=== PATIENT | male | born 2005 | race Caucasian/White ===

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

== ENCOUNTER 2023-01-24 18:57 | Emergency (ER) | payer MEDICAID, SELFPAY ==
[2023-01-24 18:59] VITALS: BP 132/75; PULSE 66; RESP 16; TEMP 36.8; O2SAT 97; BMI 35.5
[2023-01-24 19:31] VITALS: BP 113/66; PULSE 85; O2SAT 93
[2023-01-24 20:04] VITALS: BP 114/66; PULSE 83; O2SAT 97
--- NOTE | 2023-01-24 20:06 | HMH.EDGENADL ---
Discharge Plan Disposition Patient Disposition: Home, Self-Care Condition: Good Prescriptions Prescriptions: New amoxicillin 500 mg tablet 1,000 mg PO Q12H Qty: 14 0RF Discontinued amoxicillin [amoxicillin] 875 mg tablet 875 mg PO Q12H Qty: 20 0RF No Action etodolac 200 mg capsule 200 mg PO Q8H PRN (Reason: pain) Qty: 20 0RF methylprednisolone [Medrol (Louie)] 4 mg tablets,dose pack See Rx Instructions .Route .COMPLEX 6 Days Qty: 21 0RF Rx Instructions: taper pack; cyclobenzaprine 10 mg tablet 10 mg PO TID PRN (Reason: muscle spasm) Qty: 15 0RF ylvjgiblftktsue-esonngddh-QK [Bromfed DM] 2-30-10 mg/5 mL Syrup 5 ml PO Q6H PRN (Reason: Cough) Qty: 240 0RF Referrals Follow up/Referrals: Fred Riley MD [Primary Care Provider] - See instructions Activity Restrictions/Add. Instructions Additional Instructions/Restrictions: At this time. You are safe to be discharged home. If new or worsening symptoms please do not hesitate to return the emergency department. Clinical Impressions Clinical Impression: Otitis media Discharge ED Provider: Shade Bolton General Adult HPI General Chief complaint: Ear Stated complaint: GREENE, light headed, RT ear pain Time Seen by Provider: 01/24/23 19:37 Mode of Arrival: Ambulatory Source of Information: Patient Limitations: No Limitations Description of Symptoms (Recalled from ER Triage Doc. by RN): pt ambulatory to ED via POV for right ear pain and vertigo. Issue present for past week. progressing to left ear, with increased lightheadedness. History of Present Illness HPI narrative: Patient is a 88-year-old male with past medical history of recurrent ear infections who presents emergency department for evaluation of dizziness and ear pain. Onset was acute, over the last few days. Afebrile, no other acute complaints at this time. Patient denies falls, recent viral illness. He does state that there is a gastrointestinal illness in the house which he does not have any current symptoms, patient also has seasonal allergies. Related Data Previous Rx's Medication Instructions Recorded cyclobenzaprine 10 mg tablet 10 mg PO TID PRN muscle spasm #15 09/06/22 tabs etodolac 200 mg capsule 200 mg PO Q8H PRN pain #20 caps 09/06/22 methylprednisolone 4 mg tablets in See Rx Instructions .Route 09/06/22 a dose pack (Medrol (Louie)) .COMPLEX 6 days #21 tabs qcwnwzeevtfynji-tjcuhzxzvchukxm-CI 5 ml PO Q6H PRN Cough #240 mL 10/25/22 2 mg-30 mg-10 mg/5 mL oral syrup (Bromfed DM) amoxicillin 500 mg tablet 1,000 mg PO Q12H #14 tabs 01/24/23 Allergies Allergy/AdvReac Type Severity Reaction Status Date / Time No Known Allergies Allergy Verified [facility]/25[facility]22 10:58 [facility] Dis[facility]: The information contained in this section may have been updated after the patient was seen, as this information can be updated by other users. 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 No significant past medical history Social History Smoking Status: Current every day smoker second hand exposure: No alcohol intake: never substance use type: denies use current occupational status: employed Travel in the last 8 weeks: None caffeine: Yes ROS Obtained: Yes Systems reviewed as appropriate & no additional complaints except as documented Physical Exam General General appearance: alert and in no apparent distress Head Head exam: atraumatic and normocephalic Eye Eye exam: Present PERRL and EOMI ENT ENT exam: Present mucous membranes moist and other (Bulging right tympanic membrane with surrounding erythema. No anterior effacement of the pinna, no external auditory canal purulence.) Neck Neck exam: Present normal inspection Chest Chest inspection: Present normal inspection and symmetric chest wall rise Respiratory Respiratory exam: Present normal lung sounds bilaterally; Ab
[2023-01-24 20:18] VITALS: BP 124/75; PULSE 64; RESP 16; TEMP 36.8; O2SAT 98
== END 2023-01-24 20:27 | disposition home or self-care (01) ==
PROVIDERS: Emergency Provider Emergency Medicine; PCP Internal Medicine Adolescent Medicine
DX: H66.91 Otitis media, unspecified, right ear (principal); R42 Dizziness and giddiness; F17.200 Nicotine dependence, unspecified, uncomplicated
CPT/HCPCS: 99283

== ENCOUNTER 2023-05-07 00:38 | Emergency (ER) | payer MEDICAID, SELFPAY ==
[2023-05-07 00:40] VITALS: BP 128/66; PULSE 68; RESP 14; TEMP 36.4; O2SAT 99; BMI 36.5
--- NOTE | 2023-05-07 00:41 | HMH.EDGENADL ---
Discharge Plan Disposition Patient Disposition: Home, Self-Care Chief Complaint: Extremity Injury, Upper Prescriptions Prescriptions: No Action No Known Home Medications Referrals Follow up/Referrals: Fred Riley MD [Primary Care Provider] - See instructions Activity Restrictions/Add. Instructions Additional Instructions/Restrictions: Please follow-up with your primary care provider. Please return to the emergency department if you develop any new or worsening symptoms or become concerned for your health. Clinical Impressions Clinical Impression: Hand pain, right Discharge ED Provider: Héctor Gonzales General Adult HPI General Chief complaint: Extremity Injury, Upper Stated complaint: AO 05/03/23 11:00 Injury right hand Time Seen by Provider: 05/07/23 00:40 History of Present Illness HPI narrative: 18-year-old male, reportedly previously healthy, presents with right hand pain. He reports my anger got the best to me a few days ago and he punched a concrete wall with his right hand in a fist. He reports that he has had pain over his fifth metacarpal since that time. Reports no numbness or tingling. He reports symptoms have not improved and so he presents now for further evaluation. Related Data Home Medications Medication Instructions Recorded Confirmed No Known Home Medications 05/07/23 05/07/23 Allergies Allergy/AdvReac Type Severity Reaction Status Date / Time No Known Allergies Allergy Verified 10/25/22 10:58 [facility] Disclaimer: The information contained in this section may have been updated after the patient was seen, as this information can be updated by other users. 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 No significant past medical history Social History Smoking Status: Current every day smoker second hand exposure: No alcohol intake: never substance use type: denies use current occupational status: employed Travel in the last 8 weeks: None caffeine: Yes ROS Obtained: Yes All systems reviewed & no additional complaints except as documented Physical Exam General General appearance: alert and in no apparent distress Head Head exam: atraumatic and normocephalic Eye Eye exam: Present normal appearance, PERRL and EOMI ENT ENT exam: Present normal oropharynx and normal external ear exam Neck Neck exam: Present normal inspection and full ROM Chest Chest inspection: Present normal inspection and symmetric chest wall rise; Absent tenderness Respiratory Respiratory exam: Present normal lung sounds bilaterally; Absent respiratory distress Cardiovascular Cardiovascular exam: Present regular rate and normal rhythm Abdominal Exam Abdominal exam: Present soft; Absent distention, tenderness or guarding Extremities Exam Extremities exam: Present other (Tenderness to palpation of the right fifth metacarpal and MCP joint. No malrotation, no numbness or tingling, full range of motion present, no obvious deformity. mild bruising noted) Back Exam Back exam: Present normal inspection; Absent tenderness Neurological Exam Neurological exam: Present alert and oriented X3; Absent motor sensory deficit Psychiatric Psychiatric exam: Present normal affect and normal mood Skin Skin exam: Present warm, dry and normal color Lymphatic Lymphatic Findings: no adenopathy Medical Decision Making Medical Records Medical records reviewed: Yes I reviewed the patient's medical records. Teddy Inquiry Pt receiving controlled substance: No Teddy was queried for this patient: No Vital Signs: 05/07/23 00:40 Temperature 97.6 F Temperature Source Oral Pulse Rate [Right] 68 Respiratory Rate 14 Blood Pressure [Right Arm] 128/66 Blood Pressure Mean [Right Arm] 86 02 Sat by Pulse Oximetry 99 Lab Data Lab results reviewed: Yes I reviewed the patient's lab results. Orders (Tests/Meds):
--- NOTE | 2023-05-07 00:48 | XR_ITS ---
PROCEDURE INFORMATION: Exam: XR Right Hand Exam date and time: 05/07/2023 12:46 AM Age: 18 years old Clinical indication: Injury or trauma; Other: Punching; Blunt trauma (contusions or hematomas); Hand; Right; Patient HX: Punched concrete wall on Saturday, C/O pain around 5th metacarpal; Additional info: 5th metacarpal pain, punching injury TECHNIQUE: Imaging protocol: Radiologic exam of the right hand. Views: 3 or more views. Total images: 3 COMPARISON: No relevant prior studies available. FINDINGS: Bones/joints: No acute fracture or joint dislocation. No concerning bone lesions or calcifications. Joint spaces are well maintained. Soft tissues: Unremarkable soft tissues. IMPRESSION: Negative right hand.
[2023-05-07 01:21] VITALS: BP 121/71; PULSE 61; RESP 14; TEMP 36.4; O2SAT 99
== END 2023-05-07 01:22 | disposition home or self-care (01) ==
PROVIDERS: Emergency Provider Emergency Medicine; PCP Internal Medicine Adolescent Medicine
DX: M79.641 Pain in right hand (principal); F17.210 Nicotine dependence, cigarettes, uncomplicated; W22.8XXA Striking against or struck by other objects, initial encounter
CPT/HCPCS: 73130; 99283

== ENCOUNTER 2023-07-29 18:24 | Emergency (ER) | payer BC, MEDICAID, SELFPAY ==
[2023-07-29 18:26] VITALS: BP 115/75; PULSE 73; RESP 15; TEMP 36.8; O2SAT 100; BMI 36.1
--- OUTSIDE RECORDS SUMMARY | 2023-07-29 18:35 | XMS_ITS | Patient Health Record ---
Author Name Unknown Organization [id number] PE D KR[facility] Address [address] [place] [address] Care Team Providers Care Care Team Assistant Name Role Phone Fred Riley Primary Care Provider Fred Riley Unavailable Unavailable ALLERGIES No Known Allergies REASON FOR REFERRAL Reason [facility] PT to evaluate for left-sided low back pain and sciatica SaturdayNovember 26 @ 8 am with PT/ LVM Diagnosis 1 Acute left-sided low back pain with left-sided sciatica (M54.42) Referral Organization [facility] Referring Provider First Name Fred Referring Provider Last Name Rosemary Referring Provider Speciality Internal M edicine General Notes Telma Newman 02/2023 10:09:55 AM > 2nd VM left today with date and time and asked for a call back Referral Priority Routine MEDICATIONS Medication SIG (Take, Route, Fr equency, Duration) Notes Start Date End Date Status predniSONE 20 mg 1 tab(s) orally once a day for 7 days 11/21/2022 Active celecoxib 200 mg 1 cap(s) orally twic e daily for 30 days 11/21/2022 Active SOCIAL HISTORY Tobacco Use: Social History Observation Description Date Details (start date - stop date) Current Smoker NA - NA Sex Assigned At : Social History Observation Description Sex Assigned At Unknown Smoking: Question Answer Notes Are you a: current smoker How often do you smoke cigarettes? every day PROBLEMS Problem Type ICD Code Onset Dates Problem Status W/U Status Risk SNOMED Code Notes Problem Pain in left knee (M25.562) Active confirmed 4586777445 Problem Acute left-sided low back pain with left-sided sciatica (M54.42) Active confirmed 067077183 VITAL SIGNS Heart Rate 86 /min 11/21/2022 Temperature 98.1 degrees Fahrenheit 11/21/2022 Blood pressure diastolic 76 mm Hg 11/21/2022 Height 74 in 11/21/2022 Blood pressure systolic 114 mm Hg 11/21/2022 Weight 330 lbs 11/21/2022 BMI 42.36 kg/m2 11/21/2022 Encounters Encounter Location Date Provider Diagnosis [facility] S[facility] [address] [facility] [address] [place] [address] 10/29/2022 Fred Moser [facility] [address] [facility] [address] [place] [address] 11/21/2022 Fred Riley Acute left-sided low back pain with left-sided sciatica M54.42 ; Pain in left knee M25.562 and Routine medical exam Z00.00 Oxana MUÑOZ [facility] [address] [facility] [address] [place] [address] 11/23/2022 Fred Riley Acute left-sided low back pain with left-sided sciatica M54.42 ASSESSMENTS Encounter Date Diagnosis Assessment Notes Treatment Notes Treatment Clinical Notes 11/21/2022 Pain in left knee (ICD-10 - M25.562) Trial of Coronado 2 inhibitor and more potent NSAID chronically as well as prednisone for the above sciatica. Discussed beneficial effects of weight loss for his knee and back. [facility] PT evaluation for back. If PT does not improve the situation may need MRI given the striking nature of his pain. 11/21/2022 Acute left-sided low back pain with left-sided sciatica (ICD-10 - M54.42) 11/23/2022 Acute left-sided low back pain with left-sided sciatica (ICD-10 - M54.42) 11/21/2022 Routine medical exam (ICD-10 - Z00.00) Patient vapes, he is trying to quit, we discussed this. Otherwise no indication for early cancer screening. Blood pressure under good control. Has had tetanus vaccine here at school, so does not need vaccination at this point. PLAN OF TREATMENT Pending Test Test Name Order Date Physical Therapy Eval and Treat 11/24/19 23 Insurance Providers Payer Name Payer Address Payer Phone Subscriber Number Group Number Insured Name Patient Relationship to Insured Coverage Start Date Coverage End Date [employer] [place] [employer] [address] [address] [place] [address] [id number] Yoshi Doty Self - patient is the insured
[2023-07-29 18:39] LABS: Coronavirus 19, PCR Not Detected (NotDetected); Influenza A, PCR Not Detected (NotDetected); Influenza B, PCR Not Detected (NotDetected)
--- NOTE | 2023-07-29 18:48 | ED_ITS ---
Discharge Plan Disposition Patient Disposition: Home, Self-Care Prescriptions Prescriptions: New ondansetron 4 mg tablet,disintegrating 4 mg PO Q8H PRN (Reason: nausea and vomiting) 4 Days Qty: 12 0RF Referrals Follow up/Referrals: Kayla Reddy APRN [Nurse Practitioner] - See instructions Fred Riley MD [Primary Care Provider] - See instructions Activity Restrictions/Add. Instructions Additional Instructions/Restrictions: At this time it was felt you are safe to be discharged home. If new or worsening symptoms please do not hesitate to return the emergency department. If symptoms persist please follow-up with your family doctor as you are able. Please call and schedule an appointment with ENT as you are able. Clinical Impressions Clinical Impression: Hypertrophy, papillae, tongue, Acute viral syndrome Instructions Patient Instructions: DI for Diarrhea and Traveler's Diarrhea -- Adult, DI for Diarrhea and Traveler's Diarrhea -- Child, DI for Nausea -- Adult, DI for Nausea -- Child Discharge ED Provider: Shade [facility] Adult HPI General Chief complaint: Nausea/Vomiting/Diarrhea Stated complaint: nausea, spot on tongue Time Seen by Provider: 07/29/23 18:30 Mode of Arrival: Ambulatory Source of Information: Patient Limitations: No Limitations Description of Symptoms (Recalled from ER Triage Doc. by RN): pt reports to ED with c/o white spot on tongue ongoing for few weeks. pt reports he was exposed to flu at work last week. pt began to have nausea, vomitting ongoing for 2 days History of Present Illness HPI narrative: Patient is a 18-year-old male with no pertinent past medical history presents emergency department for evaluation of white spots on his tongue as well as some vomiting, diarrhea in setting of flu exposure. Spot on his tongue is on the tip of his tongue, white-colored, circular, has been around for a couple of weeks. No tobacco product use. With regards to vomiting diarrhea is nonbloody, over the last 2 days after flu exposure. No other acute complaints at this time. Related Data Previous Rx's Medication Instructions Recorded ondansetron 4 mg disintegrating 4 mg PO Q8H PRN nausea and 07/29/23 tablet vomiting 4 days #12 tabs Allergies Allergy/AdvReac Type Severity Reaction Status Date / Time No Known Allergies Allergy Verified 10/25/22 10:58 [facility] Disclaimer: The information contained in this section may have been updated after the patient was seen, as this information can be updated by other users. 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 No significant past medical history Social History Smoking Status: Never smoker second hand exposure: No alcohol intake: never substance use type: denies use current occupational status: employed Travel in the last 8 weeks: None caffeine: Yes ROS Obtained: Yes Systems reviewed as appropriate & no additional complaints except as documented Physical Exam General General appearance: alert and in no apparent distress Head Head exam: atraumatic and normocephalic Eye Eye exam: Present PERRL and EOMI ENT ENT exam: Present mucous membranes moist and other (2 mm circular lesion over anterior tongue that is white, raised.) Neck Neck exam: Present normal inspection Chest Chest inspection: Present normal inspection and symmetric chest wall rise Respiratory Respiratory exam: Present normal lung sounds bilaterally; Absent respiratory distress Cardiovascular Cardiovascular exam: Present regular rate and normal rhythm Abdominal Exam Abdominal exam: Present soft; Absent tenderness Extremities Exam Extremities exam: Present normal inspection Neurological Exam Neurological exam: Present alert Psychiatric Psychiatric exam: Present normal affect Skin Skin exam: Present warm and dry Medical Decision Making Teddy Inquiry Pt receiving controlled substance: No Vital Signs: 07/29/23 18:26 Temperature 98.3 F Temperature Source Oral Pulse Rate [Left Radial] 73 Respiratory Rate 15 Blood Pressure [Right Arm] 115/75 Blood Pressure Mean [Right Arm] 88 02 Sat by Pulse Oximetry 100 Oxygen Delivery Method Room Air Orders (Tests/Meds): ED MEDICATIONS Generic Name Dose Route Start Last Admin Trade Name Fahad PRN Reason Stop Dose Admin Ondansetron HCl 4 mg 07/29/23 18:47 Ondansetron 4mg Odt SL 07/29/23 18:48 ONCE ONE ORDERS Category Date Time Status Rapid PCR Covid and Flu A/B Stat Lab 07/29/23 18:34 Received Medical Decision Narrative: In summary patient is a 18 old male past medical history described above presents emergency department for evaluation of tongue lesion and viral symptoms in the setting of flu exposure. Patient is hemodynamically stable nontoxic- appearing upon arrival, afebrile. With regards to tongue lesion, consistent with hypertrophic papula. No tobacco use to suggest malignancy that is developing. With regards to vomiting and diarrhea that is nonbloody in the setting of flu exposure differential includes a viral syndrome, influenza, among others. Workup will be limited to viral swab, labs and imaging were considered but given otherwise well-appearing will be deferred. Patient underwent p.o. challenge and was successful. Given the location of the hypertrophic papula that is bothersome to him he will be referred to ENT for continued evaluation. Critical Care Critical Care Time Critical Care Time: No
[2023-07-29] MEDS: ONDANSETRON 4MG ODT 4 MG SL (18:50)
[2023-07-29 18:55] VITALS: BP 115/75; PULSE 83; RESP 16; TEMP 36.8; O2SAT 99
== END 2023-07-29 18:57 | disposition home or self-care (01) ==
PROVIDERS: Emergency Provider Emergency Medicine; PCP Internal Medicine Adolescent Medicine
DX: K14.3 Hypertrophy of tongue papillae (principal); R11.2 Nausea with vomiting, unspecified; R19.7 Diarrhea, unspecified; Z20.828 Contact with and (suspected) exposure to other viral communicable diseases
CPT/HCPCS: 87636; 99283

== ENCOUNTER 2023-08-30 09:17 | Emergency (ER) | payer BC, MEDICAID, SELFPAY ==
[2023-08-30 09:35] VITALS: BP 126/79; PULSE 75; RESP 21; TEMP 36.9; O2SAT 100; BMI 37.2
--- NOTE | 2023-08-30 09:43 | ED_ITS ---
Discharge Plan Disposition Patient Disposition: Home, Self-Care Condition: Good Referrals Follow up/Referrals: Fred Riley MD [Primary Care Provider] - See instructions Kayla Reddy APRN [Nurse Practitioner] - See instructions (Call office for appointment) Tucker Awad [Referring] - See instructions (Call office for appointment) Activity Restrictions/Add. Instructions Additional Instructions/Restrictions: Use Saline nasal spray to help keep nose hydrated if you are having dryness that could be causing your Nose Bleeds Use a humidifer it may help with moisture in the air and help with nasal dryness You was not having any bleeding at this time, recommend follow up with ENT if nose bleeds continue Follow up with your Family Doctor Follow up with [facility] to assess if you could be having allergy problems Clinical Impressions Clinical Impression: Nasal bleeding Stand Alone Forms Stand Alone Forms: Work/School Release Instructions Patient Instructions: DI for Nosebleed, Nosebleed Discharge ED Provider: Julia Beltran [facility] HPI General Stated complaint: numerous nosebleeds X3 days Mode of Arrival: Ambulatory Source of Information: Patient Limitations: No Limitations Time Seen by Provider: 08/30/23 09:43 Description of Symptoms (Recalled from Triage Doc. by RN): PATIENT C/O INTERMITTEN NOSE BLEEDS WITH HEADACHES X 3 DAYS HEENT Symptoms (Recalled from RN notes): Yes Resp Symptoms (Recalled from RN notes): No Skin Symptoms (Recalled from RN notes): No MS Symptoms (Recalled from RN notes): No Functional Status (Recalled from RN notes): WNL History of Present Illness Provider Complaint: Patient states that this time of year he has allergy problems States that for the last couple of days he has been having nose bleeds on an off and a little headache here and there States this morning he had another nose bleed and didnt go into work States it is not bleeding now but just wanted to get checked Related Data Allergies Allergy/AdvReac Type Severity Reaction Status Date / Time No Known Allergies Allergy Verified 10/25/22 10:58 Worker's Comp Is this a Worker's Comp case?: No PFSH [facility] Disclaimer: The information contained in this section may have been updated after the hill nt was seen, as this information can be updated by other users. 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 No significant past medical history Social History Smoking Status: Never smoker second hand exposure: No alcohol intake: never substance use type: denies use current occupational status: employed Travel in the last 8 weeks: None caffeine: Yes ROS Obtained: Yes All systems reviewed & no additional complaints except as documented and Yes Systems reviewed as appropriate & no additional complaints except as documented Constitutional Constitutional: Reports system reviewed and no additional complaints, except as documented and Reports as per HPI ENT Ears, Nose, Mouth, and Throat: Reports system reviewed and no additional complaints, except as documented, Reports as per HPI and Reports epistaxis (on and off for the last 3 days) Cardiovascular Cardiovascular: Reports system reviewed and no additional complaints, except as documented and Reports as per HPI Respiratory Respiratory: Reports system reviewed and no additional complaints, except as documented and Reports as per HPI Gastrointestinal Gastrointestingal: Reports system reviewed and no additional complaints, except as documented and as per HPI Physical Exam General General appearance: alert and in no apparent distress ENT ENT exam: Present mucous membranes moist Expanded ENT Exam Nose exam: Present other (no active bleeding at this time); Absent sinus tenderness Respiratory Respiratory exam: Present normal lung sounds bilaterally; Absent respiratory distress or wheezes Cardiovascular Cardiovascular exam: Present regular rate, normal rhythm and normal heart sounds Neurological Exam Neurological exam: Present alert, oriented X3 and normal gait Medical Decision Making Teddy Inquiry Pt receiving controlled substance: No Teddy was queried for this patient: No Vital Signs: 08/30/23 09:35 Temperature 98.4 F Temperature Source Oral Pulse Rate [Left Brachial] 75 Respiratory Rate 21 Blood Pressure [Left Arm] 126/79 Blood Pressure Mean [Left Arm] 94 Blood Pressure Source [Left Arm] Automatic Cuff Blood Pressure Position [Left Arm] Sitting 02 Sat by Pulse Oximetry 100 Oxygen Delivery Method Room Air Medical Decision Narrative: no active bleeding noted at this time
[2023-08-30 09:46] VITALS: BP 126/79; PULSE 75; RESP 21; TEMP 36.9; O2SAT 100
== END 2023-08-30 09:55 | disposition home or self-care (01) ==
PROVIDERS: Emergency Provider Nurse Practitioner; PCP Internal Medicine Adolescent Medicine
DX: R04.0 Epistaxis (principal); R51.9 Headache, unspecified
CPT/HCPCS: 99212; 99213; G0463

== ENCOUNTER 2023-12-16 12:57 | Emergency (ER) | payer BC, MEDICAID, SELFPAY ==
[2023-12-16 13:10] VITALS: BP 117/64; PULSE 76; RESP 16; TEMP 37; O2SAT 100; BMI 36.3
--- NOTE | 2023-12-16 13:31 | EXP.UTC ---
Discharge Plan Disposition Patient Disposition: Home, Self-Care Condition: Good Prescriptions Prescriptions: New cefdinir 300 mg capsule 300 mg PO Q12H 10 Days Qty: 20 0RF ondansetron 4 mg tablet,disintegrating 4 mg PO Q8H Qty: 10 0RF Referrals Follow up/Referrals: Fred Riley MD [Primary Care Provider] - See instructions Activity Restrictions/Add. Instructions Additional Instructions/Restrictions: If symptoms persist or worsen, return to clinic or follow up with PCP. Increase fluids and rest. Clinical Impressions Clinical Impression: Gastroenteritis Pharyngitis Qualifiers: Pharyngitis/tonsillitis etiology: unspecified etiology Qualified Code(s): J02.9 - Acute pharyngitis, unspecified Stand Alone Forms Stand Alone Forms: Work/School Release Instructions Patient Instructions: DI for Pharyngitis/Tonsillopharyngitis -- Adult, Gastroenteritis Diet, DI for Viral Gastroenteritis -- Adult Discharge ED Provider: Anupama Benjamin [facility] General Stated complaint: chills v/d 105. temp headache Mode of Arrival: Ambulatory Source of Information: Patient Limitations: No Limitations Time Seen by Provider: 12/16/23 13:29 Description of Symptoms (Recalled from Triage Doc. by RN): PATIENT C/O HEADACHE, VOMITING, DIARRHEA, AND FEVER X 2 DAYS HEENT Symptoms (Recalled from RN notes): Yes Resp Symptoms (Recalled from RN notes): No Skin Symptoms (Recalled from RN notes): No MS Symptoms (Recalled from RN notes): No Functional Status (Recalled from RN notes): WNL History of Present Illness Provider Complaint: Pt reports that on Saturday he had a headache and then by Saturday he was having fevers, nausea, vomiting, diarrhea, sore throat, and sinus drainage. Pt states that he left work last night and went home and had a fever of 105. He reports that he took Ibuprofen and took a cold shower. Related Data Previous Rx's Medication Instructions Recorded cefdinir 300 mg capsule 300 mg PO Q12H 10 days #20 caps 12/16/23 ondansetron 4 mg disintegrating 4 mg PO Q8H #10 tabs 12/16/23 tablet Allergies Allergy/AdvReac Type Severity Reaction Status Date / Time No Known Allergies Allergy Verified 10/25/22 10:58 Worker's Comp Is this a Worker's Comp case?: No PFSH PFSH Disclaimer: The information contained in this section may have been updated after the patient was seen, as this information can be updated by other users. 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 (Updated 12/16/23 @ 13:44 by Anupama Benjamin APRN) Migraine Social History Smoking Status: Never smoker second hand exposure: No alcohol intake: never substance use type: denies use current occupational status: employed Travel in the last 8 weeks: None caffeine: Yes ROS Obtained: Yes All systems reviewed & no additional complaints except as documented Constitutional Constitutional: Reports system reviewed and no additional complaints, except as documented, Reports body ache, Reports chills, Reports fever(s), Reports headache(s) and Reports malaise Eyes Eyes: Reports system reviewed and no additional complaints, except as documented ENT Ears, Nose, Mouth, and Throat: Reports system reviewed and no additional complaints, except as documented, Reports headache(s), Reports nasal discharge, Reports odynophagia and Reports sore throat Cardiovascular Cardiovascular: Reports system reviewed and no additional complaints, except as documented Respiratory Respiratory: Reports system reviewed and no additional complaints, except as documented Gastrointestinal Gastrointestingal: Reports system reviewed and no additional complaints, except as documented, diarrhea, nausea, odynophagia and vomiting Genitourinary Male Genitourinary: Reports system reviewed and no additional complaints, except as documented Musculoskeletal Musculoskeletal: Reports system reviewed and no additional complaints, except as documented Integumentary/Breasts Skin/Breast: Reports system reviewed and no additional complaints, except as documented Neurologic Neurologic: Reports system reviewed and no additional complaints, except as documented and Reports headache(s) Endocrine Endocrine: Reports system reviewed and no additional complaints, except as documented Hematologic/Lymphatic Henatologic/Lymphatic: Reports system reviewed and no additional complaints, except as documented Allergic/Immunologic Allergic/Immunologic: Reports system reviewed and no additional complaints, except as documented Physical Exam General General appearance: alert Comment: ill appearing Head Head exam: atraumatic and normocephalic Eye Eye exam: Present normal appearance Expanded ENT Exam External ear exam: Present normal external inspection Nose exam: Absent sinus tenderness Nasal speculum exam: Bilateral: other (clear drainage) Mouth exam: Present normal external inspection Teeth exam: Present normal inspection Throat exam: Present tonsillar erythema and tonsillomegaly Comment: soft palate petechia Neck Neck exam: Present lymphadenopathy (bilateral anterior cervical) Chest Chest inspection: Present normal inspection and symmetric chest wall rise Respiratory Respiratory exam: Present normal lung sounds bilaterally Cardiovascular Cardiovascular exam: Present regular rate, normal rhythm and normal heart sounds Abdominal Exam Abdominal exam: Present soft, tenderness and normal bowel sounds Abdominal tenderness: Present diffuse Extremities Exam Extremities exam: Present normal inspection and full ROM Back Exam Back exam: Present normal inspection Neurological Exam Neurological exam: Present alert and oriented X3 Psychiatric Psychiatric exam: Present normal affect and normal mood Skin Skin exam: Present warm, dry and intact Lymphatic Lymphatic Findings: no adenopathy Medical Decision Making Tdedy Inquiry Pt receiving controlled substance: No Teddy was queried for this patient: No Vital Signs: 12/16/23 13:10 Temperature 98.6 F Temperature Source Oral Pulse Rate [Left Brachial] 76 Respiratory Rate 16 Blood Pressure [Left Arm] 117/64 Blood Pressure Mean [Left Arm] 81 Blood Pressure Source [Left Arm] Automatic Cuff Blood Pressure Position [Left Arm] Sitting 02 Sat by Pulse Oximetry 100 Oxygen Delivery Method Room Air
[2023-12-16 13:40] LABS: UTC Influenza A Antigen Negative (Negative); UTC Strep Screen (Rapid) Negative (Negative)
[2023-12-16 13:41] LABS: UTC Influenza B Antigen Negative (Negative)
[2023-12-16 13:44] VITALS: BP 117/64; PULSE 76; RESP 16; TEMP 37; O2SAT 100
== END 2023-12-16 13:49 | disposition home or self-care (01) ==
PROVIDERS: Emergency Provider Nurse Practitioner Family; PCP Internal Medicine Adolescent Medicine
DX: K52.9 Noninfective gastroenteritis and colitis, unspecified (principal); J02.9 Acute pharyngitis, unspecified; R50.9 Fever, unspecified; R11.2 Nausea with vomiting, unspecified
CPT/HCPCS: 87804; 87880; 99212; 99214; G0463

== ENCOUNTER 2023-12-19 12:12 | Emergency (ER) | payer BC, MEDICAID, SELFPAY ==
[2023-12-19 12:30] VITALS: BP 118/67; PULSE 65; RESP 18; TEMP 36.8; O2SAT 98; BMI 35.9
--- NOTE | 2023-12-19 12:37 | EXP.UTC ---
Discharge Plan Disposition Patient Disposition: Home, Self-Care Condition: Good Prescriptions Prescriptions: New azithromycin 250 mg tablet 250 mg PO DIRECTED Qty: 6 0RF Rx Instructions: Take two (2) tablets on day #1, then one (1) tablet day #2 thru #5 Discontinued cefdinir 300 mg capsule 300 mg PO Q12H 10 Days Qty: 20 0RF No Action ondansetron 4 mg tablet,disintegrating 4 mg PO Q8H Qty: 10 0RF Referrals Follow up/Referrals: Fred Riley MD [Primary Care Provider] - See instructions Activity Restrictions/Add. Instructions Additional Instructions/Restrictions: Start antibiotics today be sure to take it as ordered with the full length of time although you should start feeling better in 24-48 hours. Change toothbrush and toothpaste 24-48 hours after starting antibiotics Tylenol or Motrin as needed for fever or pain Encourage fluids, water, Gatorade, Powerade, try cold fluids, popsicles, ice cream will make it feel better You are contagious for 24 hours. Avoid kissing anyone, no eating or drinking after anyone. You are contagious. Follow-up the ER for new or worsening symptoms or no noticeable improvement over the next 24-48 hours. Follow-up with PCP this week. Clinical Impressions Clinical Impression: Strep sore throat Instructions Patient Instructions: DI for Strep Throat Discharge ED Provider: Tracey ([facility] [place] HPI General Stated complaint: blisters in mouth Mode of Arrival: Ambulatory Source of Information: Patient Limitations: No Limitations Time Seen by Provider: 12/19/23 12:37 Description of Symptoms (Recalled from Triage Doc. by RN): Pt was seen in another [facility] on saturday and was dx with tonsilitis. He is currently on cefdnir. He has white patches on throat, and swollen gums. HEENT Symptoms (Recalled from RN notes): Yes Resp Symptoms (Recalled from RN notes): No Skin Symptoms (Recalled from RN notes): No MS Symptoms (Recalled from RN notes): No Functional Status (Recalled from RN notes): n/a History of Present Illness Provider Complaint: 18 yr old male presents for sore throat. pt states he was seen in another [facility] on saturday and was dx with tonsilitis. He is currently on cefdnir. He has white patches on throat, and swollen gums. Related Data Previous Rx's Medication Instructions Recorded ondansetron 4 mg disintegrating 4 mg PO Q8H #10 tabs 12/16/23 tablet azithromycin 250 mg tablet 250 mg PO DIRECTED #6 tabs 12/19/23 Allergies Allergy/AdvReac Type Severity Reaction Status Date / Time No Known Allergies Allergy Verified 12/19/23 12:35 Worker's Comp Is this a Worker's Comp case?: No PFSH PFS Disclaimer: The information contained in this section may have been updated after the patient was seen, as this information can be updated by other users. 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) Smoking Status: Never smoker second hand exposure: No alcohol intake: never substance use type: denies use current occupational status: employed Travel in the last 8 weeks: None caffeine: Yes ROS Obtained: Yes All systems reviewed & no additional complaints except as documented Constitutional Constitutional: Reports system reviewed and no additional complaints, except as documented Eyes Eyes: Reports system reviewed and no additional complaints, except as documented ENT Ears, Nose, Mouth, and Throat: Reports system reviewed and no additional complaints, except as documented, Reports as per HPI and Reports sore throat Cardiovascular Cardiovascular: Reports system reviewed and no additional complaints, except as documented Respiratory Respiratory: Reports system reviewed and no additional complaints, except as documented Gastrointestinal Gastrointestingal: Reports system reviewed and no additional complaints, except as documented Musculoskeletal Musculoskeletal: Reports system reviewed and no additional complaints, except as documented Integumentary/Breasts Skin/Breast: Reports system reviewed and no additional complaints, except as documented Neurologic Neurologic: Reports system reviewed and no additional complaints, except as documented Endocrine Endocrine: Reports system reviewed and no additional complaints, except as documented Hematologic/Lymphatic Henatologic/Lymphatic: Reports system reviewed and no additional complaints, except as documented Allergic/Immunologic Allergic/Immunologic: Reports system reviewed and no additional complaints, except as documented Physical Exam General General appearance: alert and in no apparent distress Eye Eye exam: Present normal appearance ENT ENT exam: Present mucous membranes moist and TM's normal bilaterally Expanded ENT Exam Throat exam: Present tonsillar erythema, tonsillomegaly and tonsillar exudate Respiratory Respiratory exam: Present normal lung sounds bilaterally Cardiovascular Cardiovascular exam: Present regular rate and normal rhythm Neurological Exam Neurological exam: Present alert and oriented X3 Skin Skin exam: Present warm and intact Medical Decision Making Medical Records Medical records reviewed: Yes I reviewed the patient's medical records. Teddy Inquiry Pt receiving controlled substance: No Teddy was queried for this patient: No Vital Signs: 12/19/23 12:30 Temperature 98.2 F Temperature Source Oral Pulse Rate [Right Radial] 65 Respiratory Rate 18 Blood Pressure [Right Arm] 118/67 Blood Pressure Mean [Right Arm] 84 Blood Pressure Source [Right Arm] Automatic Cuff Blood Pressure Position [Right Arm] Sitting 02 Sat by Pulse Oximetry 98 Oxygen Delivery Method Room Air
[2023-12-19 12:53] VITALS: BP 118/67; PULSE 65; RESP 18; TEMP 36.8; O2SAT 98
== END 2023-12-19 12:53 | disposition home or self-care (01) ==
PROVIDERS: Emergency Provider Nurse Practitioner Family; PCP Internal Medicine Adolescent Medicine
DX: J02.0 Streptococcal pharyngitis (principal)
CPT/HCPCS: 99212; 99214; G0463

== ENCOUNTER 2025-01-12 08:56 | Outpatient (CLI) | payer BC, SELFPAY ==
--- NOTE | 2025-01-12 08:59 | CT_ITS ---
FINAL REPORT TECHNIQUE: Thin section axial images were obtained through the left hand without contrast. Reconstruction images were obtained from the axial data. Exam was performed using dose reduction technique. This study was performed with techniques to keep radiation doses as low as reasonably achievable (ALARA). Individualized dose reduction techniques using automated exposure control or adjustment of mA and/or kV according to the patient's size were employed. CLINICAL HISTORY: CARPAL BONE FRACTURE COMPARISON: None FINDINGS: There is no acute fracture or dislocation. No acute osseous abnormality is identified. Joint spaces are preserved. Small radiocarpal and intercarpal joint effusions are present. IMPRESSION: No acute osseous abnormality. Small radiocarpal and intercarpal joint effusions are present. Reviewed, Interpreted and Dictated by Pam Lucas MD Transcribed by Siomara Holt Authenticated and [facility]
== END 2025-01-12 23:59 | disposition home or self-care (01) ==
LOC: RAD 08:57
PROVIDERS: PCP Internal Medicine Adolescent Medicine; Visit Provider Physician Assistant
DX: M25.432 Effusion, left wrist (principal); M25.442 Effusion, left hand
CPT/HCPCS: 73200

== ENCOUNTER 2025-03-18 08:25 | Emergency (ER) | payer BC, SELFPAY ==
[2025-03-18] VITALS (12 sets, daily range): BP systolic 100–129; BP diastolic 39–75; PULSE 61–75; RESP 14–18; TEMP 36.9; O2SAT 98–100; BMI 35.3
--- NOTE | 2025-03-18 08:49 | ECG_ITS ---
APPROVED REPORT Exam: Resting ECG HR:70 bpm ECG Measurements Heart Rate 70 AXES NV 151 P 46 QRSd 96 QRS 42 QT 387 T 17 QTc 408 Conclusion Sinus rhythm Normal intervals Normal axis Isolated T wave inversion in lead III No STEMI Electronically signed by : Dominik Moise, 03/18/2025 16:57:16
--- NOTE | 2025-03-18 08:49 | CT_ITS ---
FINAL REPORT TECHNIQUE: After the administration of intravenous contrast, axial images were obtained through the abdomen and pelvis by computed tomography. The study was performed with techniques to keep radiation dose as low as reasonably achievable, (ALARA). Individual dose reduction techniques using automated exposure control or adjustment of mA and/or kV according to the patient's size were employed. CLINICAL HISTORY: LUQ abdominal pain No prior FINDINGS: Abdomen: The lung bases are clear. There is mild fatty infiltration of the liver. The gallbladder is present. The spleen, pancreas, adrenals and kidneys appear unremarkable. The aorta is normal in caliber. There is no free fluid or adenopathy. Pelvis: The appendix is normal. The urinary bladder is decompressed. There is no free fluid or adenopathy. IMPRESSION: Mild fatty liver. Reviewed, Interpreted and Dictated by Nicola Ortega MD Transcribed by Zoë Gold Authenticated and . [facility]
--- NOTE | 2025-03-18 08:49 | XR_ITS ---
FINAL REPORT CLINICAL HISTORY: LUQ pain, Chest pain FINDINGS: CHEST 2 VIEWS PA AND LATERAL The heart is normal in size. The mediastinum is unremarkable. The lungs are clear. There is no pneumothorax. IMPRESSION: No acute process. Reviewed, Interpreted and Dictated by Nicola Ortega MD Transcribed by Zoë Gold Authenticated and [facility]
--- NOTE | 2025-03-18 08:51 | ED_ITS ---
Discharge Plan Disposition Patient Disposition: Home, Self-Care Condition: Good Prescriptions Prescriptions: No Action ondansetron 4 mg tablet,disintegrating 4 mg PO Q8H Qty: 10 0RF azithromycin 250 mg tablet 250 mg PO DIRECTED Qty: 6 0RF Rx Instructions: Take two (2) tablets on day #1, then one (1) tablet day #2 thru #5 Referrals Follow up/Referrals: Fred Riley MD [Primary Care Provider, Internal Medicine] - See instructions Activity Restrictions/Add. Instructions Additional Instructions/Restrictions: Your labs and CT scan today were normal. In the event your pain is being caused by acid reflux, I want you to trial taking 20 mg of pepcid for the next 2 weeks daily. You can pick this up over the counter at any pharmacy. If you have any new or worsening symptoms please return to the ER for further evaluation Clinical Impressions Clinical Impression: Abdominal pain Qualifiers: Abdominal location: upper abdomen, unspecified Qualified Code(s): R10.10 - Upper abdominal pain, unspecified Chest pain Qualifiers: Chest pain type: unspecified Qualified Code(s): R07.9 - Chest pain, unspecified Instructions Patient Instructions: DI for Acute Abdominal Pain Print Language Print Language: Urdu Discharge ED Provider: Dominik Moise General Chief Complaint: Abdominal Pain Stated Complaint: pain on left upper abdomen and shoulder Time Seen by Provider: 03/18/25 08:35 History of Present Illness HPI narrative: This is a 20-year-old male patient, with no past medical history and no daily medications, who is presenting to the emergency department today for evaluation of chest and abdominal pain. Patient states that he was getting off of work this morning when he began experiencing pain in the left abdomen. He does not identify any provoking factors but he does note that he ate approximately an hour prior to onset of pain. He states that since the onset of his pain he is now experiencing pain radiating upwards into the chest and he describes a pleuritic component to this pain as well. He has had nausea but no vomiting or diarrhea. No constipation. No blood in his stool. He has not had any recent surgeries, no recent plane travel, no recent car travel greater than 6 hours, no exogenous hormone use. No history of blood clots. No hemoptysis. Related Data Previous Rx's ?Medication ?Instructions ?Recorded ondansetron 4 mg disintegrating 4 mg PO Q8H #10 tabs 0 12/16/23 tablet azithromycin 250 mg tablet 250 mg PO DIRECTED #6 ta bs 12/19/23 Allergies Allergy/AdvReac Type Severity Reaction Status Date / Time No Known Allergies Allergy Verified 12/19/23 12:35 [facility] Disclaimer: The information contained in this section may have been updated after the patient was seen, as this information can be updated by other users. 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) Smoking Status: Current every day smoker second hand exposure: No alcohol intake: never substance use type: denies use current occupational status: employed Travel in the last 8 weeks?: None caffeine: Yes Have you lived/traveled outside [place] in past 30 days?: No Contact w/someone who lives/traveled outside US past 30 days?: No Exposure to someone with infectious disease in past 14 days?: No Do you have a fever (greater than 100.4 F or 38 C)?: No Have you tested positive for COVID-19?: No Exposed to someone with COVID-19 in past 14 days?: No Do you have a sore throat?: No Do you have a cough?: No Do you have any weakness?: No Do you have any diarrhea?: No Are you experiencing any unusual bleeding?: No Do you have any muscle aches/pain?: No Do you have any abdominal pain?: No Are you experiencing loss of taste or smell?: No Other 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 Have you received the Pneumonia Vaccine: No ROS Obtained: Yes Systems reviewed as appropriate & no additional complaints except as documented Physical Exam General General appearance: other (See MDM) Respiratory Respiratory exam: Present other (See MDM) Cardiovascular Cardiovascular exam: Present other (See MDM) Neurological Exam Neurological exam: Present other (See MDM) HEART Score HEART Score HEART Score assessment performed?: Yes History (anamnesis): Slightly suspicious ECG: Non-specific disturbance Age: <45 years Risk factors: No known risk factors Troponin: </= normal limit HEART Score: 1 Critical Care Critical Care Time Critical Care Time: No Medical Decision Making Medical Records Medical records reviewed: Yes I reviewed the patient's medical records. Teddy Inquiry Pt receiving controlled substance: No Teddy was queried for this patient: No Vital Signs Vital Signs: 03/18/25 08:37 03/18/25 09:00 03/18/25 09:30 Temperature 98.4 F Temperature Source Oral Pulse Rate 69 65 Pulse Rate [Left Radial] 75 Respiratory Rate 17 18 18 Blood Pressure 120/66 115/74 Blood Pressure [Right Arm] 129/67 Blood Pressure Mean [Right Arm] 87 02 Sat by Pulse Oximetry 100 100 99 Oxygen Delivery Method Room Air Room Air 03/18/25 10:01 03/18/25 10:31 03/18/25 11:00 Temperature Temperature Source Pulse Rate 61 74 74 Pulse Rate [Left Radial] Respiratory Rate 16 14 Blood Pressure 123/63 120/43 L 100/75 L Blood Pressure [Right Arm] Blood Pressure Mean [Right Arm] 02 Sat by Pulse Oximetry 99 100 99 Oxygen Delivery Method Room Air 03/18/25 11:01 03/18/25 11:15 03/18/25 11:30 Temperature Temperature Source Pulse Rate 70 74 71 Pulse Rate [Left Radial] Respiratory Rate 14 Blood Pressure 100/75 L 101/39 L Blood Pressure [Right Arm] Blood Pressure Mean [Right Arm] 02 Sat by Pulse Oximetry 99 98 99 Oxygen Delivery Method 03/18/25 12:00 03/18/25 12:30 Temperature Temperature Source Pulse Rate 72 67 Pulse Rate [Left Radial] Respiratory Rate 16 16 Blood Pressure 103/73 L 109/63 L Blood Pressure [Right Arm] Blood Pressure Mean [Right Arm] 02 Sat by Pulse Oximetry 99 100 Oxygen Delivery Method Lab Data Labs: Lab Results 03/18/25 08:40: WBC 8.5, RBC 5.33, Hgb 15.1, Hct 46.1, MCV 86.5, MCH 28.3, MCHC 32.8, RDW 12.7, Plt Count 234, MPV 10.3, Neut % (Auto) 56.9, Lymph % (Auto) 27.5, Kinney % (Auto) 10.1 H, Eos % (Auto) 3.4, Baso % (Auto) 0.8, Neut # (Auto) 4.9, Lymph # (Auto) 2.4, Kinney # (Auto) 0.9, Eos # (Auto) 0.3, Baso # (Auto) 0.1, D-Dimer < 0.25, Sodium 137, Potassium 4.0, Chloride 100, Carbon Dioxide 31 H, Anion Gap 10.0, BUN 16, Creatinine 0.90, Estimated Creat Clear 240, Estimated GFR 106, Est GFR ( Amer) 128, Glucose 106 H, Lactate 1.2, Calcium 9.2, Total Bilirubin 0.7, AST 25, ALT 19, Alkaline Phosphatase 135 H, Troponin I < 0.01, Total Protein 7.8, Albumin 4.2, Globulin 3.6 H, Albumin/Globulin Ratio 1.2, Lipase 61, HCV Ab DIANE w/Rflx PCR Qn Negative, HIV Ag/Ab Combo Qual Negative 03/18/25 11:25: Troponin I < 0.01 03/18/25 08:40 03/18/25 08:40 Response Orders (Tests/Meds): ED MEDICATIONS Generic Name Dose Route Start Last Admin Trade Name Freq PRN Reason Stop Dose Admin Sodium Chloride 8 ml 03/18/25 09:05 Sodium Chloride 0.9% 10ml Vial IV 04/17/25 09:04 NEEDED PRN dilute pepcid Discontinued Medications Generic Name Dose Route Start Last Admin Trade Name Freq PRN Reason Stop Dose Admin Famotidine 20 mg 03/18/25 09:05 03/18/25 09:20 Famotidine 20mg/2ml Vial IV 03/18/25 09:06 20 mg ONCE ONE Administration Lactated Ringer's 1,000 mls @ 999 mls/hr 03/18/25 08:47 03/18/25 10:41 Lactated Ringer's 1000 Ml Bag IV 03/18/25 09:47 Infused .Q1H1M ONE Infusion Iopamidol 75 ml 03/18/25 09:18 03/18/25 09:19 Iopamidol-370 (76%);100ml Bottle IV 03/18/25 09:19 75 ml ONCE ONE Administration Morphine Sulfate 4 mg 03/18/25 08:47 03/18/25 08:59 Morphine 4mg/Ml Syringe IV 03/18/25 08:48 4 mg ONCE ONE Administration Ondansetron HCl 4 mg 03/18/25 08:47 03/18/25 09:00 Ondansetron 4mg/2ml Vial IV 03/18/25 08:48 4 mg ONCE ONE Administration Sodium Chloride 10 ml 03/18/25 09:18 03/18/25 09:19 Sodium Chloride 0.9% 10ml Syr (Rad Only) IV 03/18/25 09:19 10 ml ONCE ONE Administration ORDERS Category Date Time Status CT abdomen pelvis w con Stat Cat Scan 03/18/25 08:49 Completed CXR 2 view (NOT portable) [XR chest 2V] Stat Exams 03/18/25 08:49 Completed CBC w/Auto Diff [Complete Blood Count Auto Diff] Stat Lab 03/18/25 08:40 Completed CMP [Comprehensive Metabolic Panel] Stat Lab 03/18/25 08:40 Completed D-Dimer Stat Lab 03/18/25 08:40 Completed HIV Combo Stat Lab 03/18/25 08:40 Completed Hepatitis C Ab Qual. W/ RFX Stat Lab 03/18/25 08:40 Completed Lactic Acid Stat Lab 03/18/25 08:40 Completed Lipase Stat Lab 03/18/25 08:40 Completed Troponin I Q3H Lab 03/18/25 11:25 Completed Troponin I Q3H Lab 03/18/25 15:00 Ordered Troponin I Stat Lab 03/18/25 08:40 Completed ECG Data Tracing #1: Attestation: I reviewed this ECG and interpreted as documented below: ECG Narrative: EKG personally interpreted by me demonstrates normal sinus rhythm at a rate of 70 bpm, normal axis, no NH prolongation, narrow QRS, no QTc prolongation. No ST elevation or depression. There is an isolated T wave inversion in lead III. MDM Narrative Medical Decision Narrative: In summary, this is a 20-year-old male patient who is presenting to the emergency department with sudden onset left upper quadrant abdominal pain which has now developed into left lower chest pain that is somewhat pleuritic in nature. Patient does not have any associated gastrointestinal or urinary symptoms. No fevers or chills. No recent illnesses. This patient has no comorbidities that would complicate their medical management or care. On initial evaluation of the patient they were resting comfortably in no acute distress and nontoxic in appearance. They are hemodynamically stable, saturating well room air, and are neurologically intact. On physical examination the patient is appropriately alert and interactive with a GCS of 15. His heart and lungs are clear to auscultation bilaterally. He does not have any tenderness along the rib cage. He does have tenderness in the left upper quadrant of the abdomen. No lower extremity erythema or edema. Differential diagnosis to include ACS/SD, pulmonary embolism, pleural effusion, splenic infarction, pancreatitis, gastritis, lower lobar pneumonia, among others. He is not having any urinary symptoms so I have a lower suspicion for pyelonephritis or urinary tract infection. Workup was initiated with hematologic labs as well as a CT scan of the abdomen pelvis and EKG. The patient is low risk by Wells criteria and he is currently nontachycardic so I do feel that he is appropriate for evaluation with D-dimer for PE. Labs personally interpreted by me demonstrate no actionable normalities. CT scan of the abdomen pelvis with contrast was personally interpreted by me and demonstrates no large pneumoperitoneum. Official radiology read is in agreement states there is no acute abnormality. We did obtain 2 troponins, troponins were nonischemic and were less than 0.01. D-dimer is also less than 0.45. This effectively rules out pulmonary embolism. We did treat the patient with Pepcid while in the emergency department and his symptoms did mildly improve. In the event that his pain is being caused by gastritis we will recommend that he take Pepcid for the next 1 to 2 weeks. At this time all questions have been answered and all parties are agreeable with the decision to discharge home
[2025-03-18 08:52] LABS: Hematocrit 46.1 % (42.0-52.0); Hemoglobin 15.1 g/dL (14.1-18.0); Immature Granulocytes % 1.3 %; Mean Corpuscular HGB Conc 32.8 g/dL (31.8-35.4); Mean Corpuscular Hemoglobin 28.3 pg (27.0-31.2); Mean Corpuscular Volume 86.5 fl (80-94); Nucleated Red Blood Cells % 0 %; Platelet Count 234 K/mm3 (142-424); Red Blood Count 5.33 M/mm3 (4.60-6.20); Red Cell Distribution Width-SD 39.6 fL; White Blood Count 8.5 K/mm3 (4.8-10.8)
[2025-03-18] MEDS: MORPHINE 4MG/ML SYRINGE 4 MG IV (08:59)
[2025-03-18] MEDS: ONDANSETRON 4MG/2ML VIAL 4 MG IV (09:00)
[2025-03-18] MEDS: LACTATED RINGERS 1000ML 1,000 ML 999 ML IV (09:01)
[2025-03-18 09:05] LABS: Chloride 100 mmol/L (98-107); Potassium 4.0 mmoL/L (3.5-5.1); Sodium 137 mmol/L (136-145)
[2025-03-18 09:07] LABS: Alanine Aminotransferase 19 U/L (12-78)
[2025-03-18 09:08] LABS: Alkaline Phosphatase 135 U/L (38-126); Aspartate Amino Transferase 25 U/L (17-59); Bilirubin,Total 0.7 mg/dl (0.2-1.3); Calcium 9.2 mg/dl (8.4-10.2); Glucose 106 mg/dl (74-100); Lipase 61 U/L (23-300); Total Protein,Serum 7.8 g/dl (6.3-8.2)
[2025-03-18] MEDS: IOPAMIDOL-370 (76%);100ML BOTTLE 75 ML IV (09:19)
[2025-03-18] MEDS: SODIUM CHLORIDE 0.9% 10ML SYR (RAD ONLY) 10 ML IV (09:19)
[2025-03-18] MEDS: FAMOTIDINE 20MG/2ML VIAL 20 MG IV (09:20)
[2025-03-18 09:39] LABS: Blood Urea Nitrogen 16 mg/dl (9-20); Creatinine Clearance Estimated 240 mL/min (50-200); Creatinine,Serum 0.90 mg/dl (0.66-1.25); Estimated Glomerular Filt Rate 106 ml/min (>60); GFR (African American) 128 ML/MIN (>60)
[2025-03-18 09:44] LABS: D-Dimer < 0.25 ug/mL (0.0-0.5)
[2025-03-18 09:54] LABS: Troponin I < 0.01 ng/ml (0.00-0.034)
[2025-03-18 10:19] LABS: Hepatitis C Ab Qual. W/ RFX NEGATIVE (Negative)
[2025-03-18 10:33] LABS: Anion Gap 10.0 mEq/L (5-15); Carbon Dioxide 31 mmol/L (22.0-30.0)
[2025-03-18 10:46] LABS: Albumin Level 4.2 g/dl (3.5-5.0); Albumin/Globulin Ratio 1.2 (1.1-1.8); Globulin 3.6 g/dL (1.3-3.2)
[2025-03-18 12:20] LABS: Troponin I < 0.01 ng/ml (0.00-0.034)
== END 2025-03-18 12:45 | disposition home or self-care (01) ==
PROVIDERS: Emergency Provider Student in an Organized Health Care Education/Training Program; PCP Internal Medicine Adolescent Medicine
DX: R10.10 Upper abdominal pain, unspecified (principal); R07.9 Chest pain, unspecified
CPT/HCPCS: 71046; 74177; 80053; 83605; 83690; 84484; 85025; 85378; 86803; 87389; 93005; 96361; 96374; 96375; 99285; J1308; J2270; J2405; J7120; Q9967